=== PATIENT | male | born 2000 | race Caucasian/White ===

== ENCOUNTER 2022-04-22 14:42 | Inpatient (IN) | payer OTHER ==
[~2022-04-22] VITALS: Ht 182.9 cm; Wt 63.7 kg
[~2022-04-22 14:42] MED LIST: ACET325UDC; AMOX50SU PO; ASPI81CH; BUPRENORPHIN-N1 EAC1 SL; CODACE15 PO; CODACEE120 PO; IBUP100S; IBUP400 PO; Norco 5-325 Ta1 EACH PO; ONDA4ODT MM
[2022-04-22 15:08] LABS: BASOPHILS ABSOLUTE AUTO 0.03 K/mm3 (0.00-0.23); BASOPHILS PERCENT AUTO 0 % (0-2); EOSINOPHILS PERCENT AUTO 0 % (0-6); Hematocrit 49.7 % (37.0-53.0); Hemoglobin 18.3 g/dL (13.5-17.5); IMMATURE GRAN ABSOLUTE AUTO 0.05 K/mm3 (0.00-0.10); IMMATURE GRAN PERCENT AUTO 0 % (0-1); LYMPHOCYTES ABSOLUTE AUTO 1.46 K/mm3 (0.84-5.20); LYMPHOCYTES PERCENT AUTO 9 % (21-46); MONOCYTES ABSOLUTE AUTO 2.13 K/mm3 (0.16-1.47); MONOCYTES PERCENT AUTO 13 % (4-13); Mean Corpuscular HGB 30.1 pg (26.0-34.0); Mean Corpuscular HGB Conc 36.8 g/dL (31.5-36.5); Mean Corpuscular Volume 82 fL (80-100); Mean Platelet Volume 10.2 fL (9.1-12.4); NEUTROPHILS ABSOLUTE AUTO 12.51 K/mm3 (1.96-9.15); NEUTROPHILS PERCENT AUTO 77 % (41-73); Platelet Count 271 K/mm3 (150-400); RDW Coefficient Variation 11.9 % (11.7-14.2); RDW Standard Deviation 35.3 fL (35.1-46.3); Red Blood Cell Count 6.07 M/mm3 (4.30-5.90); White Blood Cell Count 16.18 K/mm3 (4.00-11.30)
[2022-04-22 15:28] LABS: Albumin/Globulin Ratio 1.4 (0.8-1.8); Bilirubin, Total 0.8 mg/dL (0.1-1.0); Calcium, Blood 10.4 mg/dL (8.5-10.1); Creatinine, Blood 1.27 mg/dL (0.60-1.20); Globulin, Blood 3.8 g/dL (2.2-4.0); Magnesium, Blood 2.6 mg/dL (1.6-2.4); Potassium, Blood 3.2 mmol/L (3.5-5.5)
[2022-04-22 15:38] LABS: Albumin, Blood 5.2 g/dL (3.4-5.0)
--- NOTE | 2022-04-23 04:32 | NUR ---
Summary: Patient admitted overnight for intractable n/v related to opiod withdrawl. Patient arrived with fever. Recieved order for rectal tylenol as patient was throwing up. Patient confused stating he came to the hospital to get a job. K+ replaced overnight. Fluids running. PRNs given per MAY. Diet changed to clear liquid. Educated patient that we would not give him food per his requests while he was actively vomitting. Educated him to take small sips. VSS. Call light in reach. Bed alarm on due to patient confusion.
[2022-04-23 04:36] LABS: BASOPHILS ABSOLUTE AUTO 0.01 K/mm3 (0.00-0.23); BASOPHILS PERCENT AUTO 0 % (0-2); EOSINOPHILS ABSOLUTE AUTO 0.03 K/mm3 (0.00-0.68); EOSINOPHILS PERCENT AUTO 0 % (0-6); Hematocrit 44.6 % (37.0-53.0); Hemoglobin 16.2 g/dL (13.5-17.5); IMMATURE GRAN ABSOLUTE AUTO 0.06 K/mm3 (0.00-0.10); IMMATURE GRAN PERCENT AUTO 0 % (0-1); LYMPHOCYTES ABSOLUTE AUTO 2.28 K/mm3 (0.84-5.20); LYMPHOCYTES PERCENT AUTO 13 % (21-46); MONOCYTES ABSOLUTE AUTO 2.55 K/mm3 (0.16-1.47); MONOCYTES PERCENT AUTO 15 % (4-13); Mean Corpuscular HGB 30.5 pg (26.0-34.0); Mean Corpuscular HGB Conc 36.3 g/dL (31.5-36.5); Mean Corpuscular Volume 84 fL (80-100); Mean Platelet Volume 10.5 fL (9.1-12.4); NEUTROPHILS ABSOLUTE AUTO 12.29 K/mm3 (1.96-9.15); NEUTROPHILS PERCENT AUTO 71 % (41-73); Platelet Count 219 K/mm3 (150-400); RDW Coefficient Variation 12.1 % (11.7-14.2); RDW Standard Deviation 36.6 fL (35.1-46.3); Red Blood Cell Count 5.31 M/mm3 (4.30-5.90); White Blood Cell Count 17.22 K/mm3 (4.00-11.30)
[2022-04-23 04:57] LABS: Albumin, Blood 4.3 g/dL (3.4-5.0); Albumin/Globulin Ratio 1.3 (0.8-1.8); Bilirubin, Total 1.2 mg/dL (0.1-1.0); Bun/Creatinine Ratio 29.2 (12.0-20.0); Calcium, Blood 8.7 mg/dL (8.5-10.1); Creatinine, Blood 1.13 mg/dL (0.60-1.20); Globulin, Blood 3.2 g/dL (2.2-4.0); Magnesium, Blood 2.7 mg/dL (1.6-2.4); Potassium, Blood 2.5 mmol/L (3.5-5.5); Total Protein, Blood 7.5 g/dL (6.4-8.2)
--- NOTE | 2022-04-23 09:05 | NUR ---
CRITICAL LAB REPORTED FOR A POTASSIUM OF 2.4, DR. ROMAN NOTIFIED. NEW ORDERS PER EMAR. REPORT RECIEVED FROM ADAMS POLK IN LAB.
--- NOTE | 2022-04-23 18:07 | NUR ---
SHIFT SUMMARY PT AOX1 AT THE MOMENT, UNABLE TO TRULY VERBALIZE MUCH. HE BECAME IRRITABLE A FEW TIMES THROUGHOUT THE SHIFT BUT WAS REDIRECTABLE. HE VOMITED MULTIPLE TIMES IN HIS BED WHICH REQUIRED MULTIPLE FULL BED CHANGES. MOST OF THE VOMITING SPELLS OCCURRED AFTER HE CHUGGED WATER. ATTEMPTED TO EDUCATE THE PT ON NOT DOING SO BUT INSTEAD SIPPING AND HE MAY HAVE FINALLY UNDERSTOOD AND IS NOW SIPPING AND EATING ICE CHIPS. LESS VOMITING HAS OCCURRED THE SHIFT PROGRESSED. PT RECIEVED 60 MEQ OF IV POTASSIUM THAT IS DOCUMENTED ON THE EMAR WELL MULTIPLE DOSES OF ANTI-NAUSEA MEDICATION ALSO ON THE EMAR. PT'S FATHER AND BROTHER VISITED THIS SHIFT. WILL REPORT TO ONCOMING NURSE.
[2022-04-23 23:10] LABS: Source, Urine Clean Catch
[2022-04-23 23:13] LABS: Bilirubin, Urine Neg (Neg); Blood, Urine Neg (Neg); Glucose Qualitative, Urine Neg (Neg); Ketones, Urine 2+ (Neg); Leukocyte Esterase, Urine 1+ (Neg); Nitrite, Urine Neg (Neg); Protein, Urine 3+ (Neg); Specific Gravity, Urine 1.015 (1.003-1.022); Urobilinogen, Urine NORM (Normal)
[2022-04-23 23:23] LABS: Amorphous Light (0-Heavy); Appearance, Urine Clear (Clear); Bacteria Few /hpf; Color, Urine Yellow (P-Yellow); Red Blood Cells, Urine Not Seen /hpf (0-2); Squamous Epithelial Cells Not Seen /hpf (Few)
[2022-04-24 04:52] LABS: BASOPHILS ABSOLUTE AUTO 0.03 K/mm3 (0.00-0.23); BASOPHILS PERCENT AUTO 0 % (0-2); EOSINOPHILS PERCENT AUTO 0 % (0-6); Hematocrit 51.7 % (37.0-53.0); Hemoglobin 18.7 g/dL (13.5-17.5); IMMATURE GRAN ABSOLUTE AUTO 0.06 K/mm3 (0.00-0.10); IMMATURE GRAN PERCENT AUTO 0 % (0-1); LYMPHOCYTES PERCENT AUTO 15 % (21-46); MONOCYTES PERCENT AUTO 15 % (4-13); Mean Corpuscular HGB 30.7 pg (26.0-34.0); Mean Corpuscular HGB Conc 36.2 g/dL (31.5-36.5); Mean Corpuscular Volume 85 fL (80-100); Mean Platelet Volume 10.4 fL (9.1-12.4); NEUTROPHILS ABSOLUTE AUTO 11.35 K/mm3 (1.96-9.15); NEUTROPHILS PERCENT AUTO 69 % (41-73); Platelet Count 253 K/mm3 (150-400); RDW Coefficient Variation 11.9 % (11.7-14.2); RDW Standard Deviation 36.8 fL (35.1-46.3); White Blood Cell Count 16.34 K/mm3 (4.00-11.30)
--- NOTE | 2022-04-24 05:06 | NUR ---
Summary: Patient had large amounts of emisis at start of shift. Patient assisted by nurse into shower and bedding changed. Nurse limited patient to clear liquids only as tolerated. Provided very small amount of fluids at a time to prevent patient consuming quickly then causing vomitting. Patient tolerated small sips of water, two popcycles, and tylenol crushed in applesause. UA sent to lab. Call light in reach. Patient still pretty lethargic only responds in one word short responses when he does respond.
[2022-04-24 05:20] LABS: Albumin, Blood 4.9 g/dL (3.4-5.0); Anion Gap 10 mmol/L (6-16); Blood Urea Nitrogen 46 mg/dL (8-24); Bun/Creatinine Ratio 32.2 (12.0-20.0); CO2, Blood 44 mmol/L (21-32); Calcium, Blood 10.2 mg/dL (8.5-10.1); Chloride, Blood 85 mmol/L (98-108); Creatinine, Blood 1.43 mg/dL (0.60-1.20); Glomerular Filtration Rate 71 (60-); Glucose, Blood 168 mg/dL (70-99); Phosphorus, Blood 4.4 mg/dL (2.5-4.9); Potassium, Blood 2.2 mmol/L (3.5-5.5); Sodium, Blood 139 mmol/L (136-145)
[2022-04-24 05:43] LABS: Magnesium, Blood 3.6 mg/dL (1.6-2.4)
--- NOTE | 2022-04-24 06:13 | NUR ---
Patient very lethargic this am. Critical K+ 2.2. EKG done with abnormal results read to Dr. Carrion. Recieved verbal order that he wants to transfer patient to PCU. Notified charger tester. Patient VSS currently stable, IV K+ replacement running. Patient responding to all orientation questions but returns to sleep after.
--- NOTE | 2022-04-24 06:40 | NUR ---
NOTIFIED PATIENT FATHER THAT HE MOVED TO ROOM [facility] BY VOICEMAIL AT [phone].
[2022-04-24 07:20] LABS: Source, Urine Foley catheter
[2022-04-24 07:29] LABS: Bilirubin, Urine Neg (Neg); Blood, Urine Neg (Neg); Color, Urine Yellow (P-Yellow); Glucose Qualitative, Urine Neg (Neg); Ketones, Urine 1+ (Neg); Leukocyte Esterase, Urine 1+ (Neg); Nitrite, Urine Neg (Neg); Protein, Urine 3+ (Neg); Specific Gravity, Urine 1.015 (1.003-1.022); Urobilinogen, Urine NORM (Normal)
[2022-04-24 07:34] LABS: Bicarbonate Venous 53.6 mmol/L (24.0-30.0); PCO2 Venous 49.2 mmHg (38-42); pH Blood Venous 7.64 (7.34-7.37)
[2022-04-24 07:35] LABS: Base Excess Venous 32.1 mmol/L
[2022-04-24 07:39] LABS: Appearance, Urine Hazy (Clear)
[2022-04-24 07:40] LABS: Red Blood Cells, Urine Not Seen /hpf (0-2); Squamous Epithelial Cells Rare /hpf (Few); White Blood Cells, Urine 0-2 /hpf (0-5)
[2022-04-24 07:41] LABS: Bacteria Rare /hpf
--- NOTE | 2022-04-24 07:46 | NUR ---
PT ADMITTED TO ICU AT 0646 FROM PCU FOR AMS. PT MINIMALLY RESPONSIVE, HE DID NOT AWAKEN/RESPOND WHEN HE WAS TRANSFERED TO ICU BED OR WHEN BUSCH CATH PLACED. AFTER TURN TO LOOK AT SKIN, WE HAD BEEN SPEAKING OUT LOUD ABOUT WHAT CAUSED SCAR ON HIS FEET, PT SPOKE UP,"IT'S FROM SMOKING". PT ABLE TO WEAKLY FOLLOW SOME COMMANDS THEN DRIFTED BACK INTO DEEP SLEEP. TEMP 101.6 VIA TEMP BUSCH PROBE. 14F BUSCH PLACED W/O DIFFICULTY. CRITICAL HIGH PH OF 7.[address] MORLEY. 2L VIA N/C PLACED ON PT FOR SATS 90% ON RA. PT HAS SOME HYPOVENT. PT TACHY W RATE 115, HTN AT 143/102. FINE FLAT RED RASH THAT MOVED AROUND ON CHEST NOTED, RASH BLANCHES. K+ INFUSING. LR INFUSING. PUPILS ARE 5/5MM EQUAL AND REACTIVE, BRISK. PT APPEARS DEHYDRATED, LIPS AND TONGUE ARE DRY AND CRACKED, URINE VERY CONCENTRATED/DARK.
--- NOTE | 2022-04-24 09:17 | NUR ---
DR ROMAN IN TO SEE PT. TYLENOL OK ORDERED. PT BRIEFLY INTERMIT. AWAKENS WITH DEEP PAINFUL STIMULI. PT COUGHED UP LARGE THICK BURGOS SPUTUM, SAMPLE SENT. MESSAGE LEFT TO CALL ICU TO PT'S GRANDMOTHER AND FATHER.
--- NOTE | 2022-04-24 13:03 | NUR ---
POTASSIUM INFUSING X2 FOR A TOTAL OF 20MEQ/HR PER DR MORLEY AND PHARMACY. K+ INFUSING THROUGH CENTRAL LINE. PICC LINE PLACED TO HUDSON; PT DANIEL PROCEDURE WELL. 2800CC DARK GREEN OUT PUT FROM NG TUBE. 1L NS BOLUS STARTED PER DR MORLEY. O2 INCREASED TO 3L TO KEEP SATS >90%. TEMP 102.0 FAN PLACED, BLANKET REMOVED, SHEET PLACED, COOL RAG TO FOREHEAD. MULTIPLE FAMILY MEMBERS AT BEDSIDE INCLUDING PT'S FATHER AND GRANDMOTHER. PT IS WAKING UP A LITTLE MORE OFTEN, REQUESTS SUCTION CATHETER.
[2022-04-24 14:57] LABS: U Amphetamine Screen Not Detected; U Barbituate Screen Not Detected; U Benzodiazapine Screen Not Detected; U Buprenorphine Screen DETECTED; U Cannabinoids Screen Not Detected; U Cocaine Screen Not Detected; U Methadone Screen Not Detected; U Methamphetamine Screen Not Detected; U Opiates Screen Not Detected; U Oxycodone Screen Not Detected; U Phencyclidine Screen Not Detected; U Propoxyphene Screen Not Detected
[2022-04-24 15:13] LABS: Bun/Creatinine Ratio 35.8 (12.0-20.0); Calcium, Blood 9.3 mg/dL (8.5-10.1); Creatinine, Blood 1.48 mg/dL (0.60-1.20); Potassium, Blood 2.5 mmol/L (3.5-5.5)
--- NOTE | 2022-04-24 18:44 | NUR ---
PT PULLED OUT NG TUBE, NGT TUBE REPLACED, PT DANIEL PROCEDURE WELL. 16F NGT PLACED TO RIGHT NARE; LOW INTERMIT. SX. DARK BROWN/GREEN OUTPUT CONT. 3700 TOTAL NGT OUTPUT THIS SHIFT. PT RECEIVED 80MEQ K+ THIS MORNING AND IS NOW RECIEVING ANOTHER 80MEQ K+. CHEM 8 TO BE DRAWN AFTER K+ INFUSES. NS INFUSING AT 150CC/HR. RASH HAS IMPROVED. MENTATION DID IMPROVE SLIGHTLY LATE MORNING, EARLY AFTERNOON, PT BECOMING MORE SOMNOLENT AGAIN, AWAKENS FROM SLEEP CONFUSED (PULLED OUT NG), ABLE TO RE-DIRECT PT. BP HAS REMAINED STABLE T/O SHIFT, OCC HTN. SINUS TACH T/O SHIFT, RATE IMPROVED AFTER LITER BOLUS. PT COUGHED UP THICK SPUTUM EVERY 30-60 MIN T/O SHIFT WHICH WAS SUCTIONED. PT REQUIRED DEEP SUCTION X2; SATS DROPPED TO 87% D/T THICK SECRETIONS AND NEEDED ASSIST. CLEARING THEM. O2 INCREASED TO 4L VIA N/C TO KEEP SATS >90%. PT'S FATHER AT BEDSIDE NOW. TMAX 102.5. MS TYLENOL GIVEN TWICE, FAN ON PT.
--- NOTE | 2022-04-25 02:23 | NUR ---
NOTIFIED BY LAB OF CRITICAL POTASSIUM OF 2.4. CONSULTED WITH MEGHAN IN PHARMACY FOR POSSIBILITIES OF NEXT POTASSIUM ORDERS. CALLED DR RUIZ WITH SUGGESTIONS FROM LAB. CONSENSUS TO ORDER 60 MEQ'S IN 500 ML NS. ORDER TO RUN AT 166 MLS/HR TOTALLING 60 MEQ'S IN 3 HOURS. OIL WELL FISHING TOOL OPERATOR HEIDI INFORMED WELL.
[2022-04-25 05:47] LABS: Base Excess Venous 9.8 mmol/L; PCO2 Venous 40.9 mmHg (38-42); pH Blood Venous 7.51 (7.34-7.37)
[2022-04-25 06:02] LABS: Anion Gap 6 mmol/L (6-16); Blood Urea Nitrogen 46 mg/dL (8-24); Bun/Creatinine Ratio 36.5 (12.0-20.0); CO2, Blood 31 mmol/L (21-32); Calcium, Blood 9.3 mg/dL (8.5-10.1); Chloride, Blood 110 mmol/L (98-108); Creatinine, Blood 1.26 mg/dL (0.60-1.20); Glomerular Filtration Rate 83 (60-); Glucose, Blood 128 mg/dL (70-99); Magnesium, Blood 3.4 mg/dL (1.6-2.4); Phosphorus, Blood 1.6 mg/dL (2.5-4.9); Potassium, Blood 2.8 mmol/L (3.5-5.5); Sodium, Blood 147 mmol/L (136-145)
--- NOTE | 2022-04-25 06:06 | NUR ---
END OF SHIFT SUMMARY PT COMPLACENT MOST OF THE NIGHT. DOES NOT AWAKEN FOR MORE THAN A FEW SECONDS AT A TIME WHEN SPOKEN TO. FOLLOWS COMMANDS VERY SLOWLY. RESP- 4 LPM NC WITH SPO2 >93%. LUNG SOUNDS CLEAR BILATERALLY THROUGHOUT. CARDIAC- ST WITH HR IN 110-120'S. SBP 140'S CONSISTANTLY THROUGHOUT NIGHT. GI,- 1250 OUTPUT PER OGT. DARK BROWN- COFFEE GROUND CONTENT ON INTERMITENT SUCTION. BUSCH DRAINING TO GRAVITY WITH LIGHT YELLOW URINE PRESENT. LABS DONE LATE THIS MORNING D/T K+ TREATMENT ENDING SHORTLY AFTER 5AM. WILL CONTINUE TO MONITOR UNTIL DAYSHIFT RN IS GIVEN REPORT.
[2022-04-25 06:11] LABS: BASOPHILS ABSOLUTE AUTO 0.05 K/mm3 (0.00-0.23); BASOPHILS PERCENT AUTO 0 % (0-2); EOSINOPHILS ABSOLUTE AUTO 0.01 K/mm3 (0.00-0.68); EOSINOPHILS PERCENT AUTO 0 % (0-6); Hematocrit 50.9 % (37.0-53.0); Hemoglobin 17.9 g/dL (13.5-17.5); IMMATURE GRAN ABSOLUTE AUTO 0.12 K/mm3 (0.00-0.10); IMMATURE GRAN PERCENT AUTO 1 % (0-1); LYMPHOCYTES ABSOLUTE AUTO 2.51 K/mm3 (0.84-5.20); LYMPHOCYTES PERCENT AUTO 11 % (21-46); MONOCYTES PERCENT AUTO 13 % (4-13); Mean Corpuscular HGB 30.4 pg (26.0-34.0); Mean Corpuscular HGB Conc 35.2 g/dL (31.5-36.5); Mean Corpuscular Volume 87 fL (80-100); Mean Platelet Volume 10.5 fL (9.1-12.4); NEUTROPHILS ABSOLUTE AUTO 17.64 K/mm3 (1.96-9.15); NEUTROPHILS PERCENT AUTO 75 % (41-73); Platelet Count 220 K/mm3 (150-400); RDW Standard Deviation 38.5 fL (35.1-46.3); Red Blood Cell Count 5.88 M/mm3 (4.30-5.90); White Blood Cell Count 23.43 K/mm3 (4.00-11.30)
--- NOTE | 2022-04-25 09:10 | NUR ---
ASSUMED CARE / DR MORLEY: REPORT RECEIVED FROM MARGARITO Gross RN. ASSUMED CARE OF THIS PT AT APPROX 0700. ON ASSESSMENT, THE PT IS RESTING QUIETLY. HE IS SOMNOLENT OVERALL BUT DOES BEGIN TO AWAKEN W/ CONTINUED VERBAL & TACTILE STIMULUS. HE WILL ANSWER QUESTIONS BY NODDING HEAD BUT NEEDS ASKED REPEATEDLY TO REMAIN AWAKE. PT IS TACHYPNEIC & USING ACCESSORY MUSCLES DURING RESPIRATIONS. LS CLEAR T/O, O2 SATS BEGINNING TO TREND DOWN W/ AVG 90%, DROPPING TO 84% AT TIMES. PT ENCOURAGED TO COUGH & DEEP BREATHE W/ O2 SATS IMPROVING TEMPORARILY. THIS RN HAS CONTACTED KIRILL R, RT, W/ REQUEST FOR PT TO BE PLACED ON AIRVO. PT TOLERATING WELL. MONITOR SHOWS ST W/ HR 110-130s, BP STABLE. PT NPO R/T RESPIRATORY STATUS & SOMNOLENCE. TEMP BUSCH PATENT/ DRAINING CLEAR YELLOW URINE. SKIN CONDITION OVERALL INTACT, SCATTERED AREAS OF SCARRING, PRESTON TO TOPS OF BILATERAL FEET. DR MORLEY AT BEDSIDE THIS AM W/ THIS RN's CONCERNS ABOUT PT's PERSISTANT AMS & DYSPNEA. THIS RN ALSO REQUESTS FURTHER POTASSIUM REPLETION THE PT's NEWEST LABS SHOW LOW VALUE OF 2.8. DR MORLEY HAS EVALUATED THE PT, ORDERS FOR KCL, NAPHOS & CAGLUC PLACED. NO OTHER CHANGES AT THIS TIME. WILL CONTINUE TO MONITOR & UPDATE NEEDED.
--- NOTE | 2022-04-25 17:30 | NUR ---
SHIFT SUMMARY: NO ACUTE CHANGES SINCE PRIOR UPDATES. PT's MENTATION HAS IMPROVED SLIGHTLY & HE IS NOW SPEAKING IN SHORT SENTENCES & ASKING APPROPRIATE QUESTIONS WHEN AWAKE, ALTHOUGH DOES REMAIN SOMNOLENT MOST OF THE TIME. LS CLEAR T/O, PT ON AIRVO W/ SETTINGS: 35 L/MIN & 40% FIO2. TOLERATING WELL W/ O2 SATS > 92% ON AVG. MONITOR SHOWS ST W/ HR 110-130s, TRENDING DOWN AFTER 1L LR FLUID BOLUS PER DR MORLEY. PT NPO R/T AMS & COPIOUS AMNTS GASTRIC CONTENTS SUCTIONED THROUGH NGT. NGT OUTPUT HAS GONE FROM COFFEE GROUNDS, TO MARLENA RED, TO GREEN/ BILE COLORED & AMNT HAS DECREASED THIS AFTERNOON. TEMP BUSCH PATENT/ DRAINING CLEAR YELLOW URINE. SKIN CONDITION OVERALL INTACT, UNCHANGED. Q2H REPOSITIONING TO MAINTAIN SKIN INTEGRITY. WILL CONTINUE TO MONITOR & REPORT OFF TO ONCOMING RN.
--- NOTE | 2022-04-25 20:00 | NUR ---
ASSUMED CARE OF PT AT 1915. REPORT RECEIVED AT BEDSIDE. PT PRESENTS IN BED. HAS AIRVO IN PLACE. MAINTAINS SATURATIONS > 90 PERCENT. PT WILL OPEN EYES TO TACTILE AND VERBAL STIMULI. HAS NGT TO LIWS. BILE COLORED DRAINAGE. PROTONIX DRIP AT 8MG/HOUR. WILL REVIEW CHART AND PLAN OF CARE FOR THIS PT.
--- NOTE | 2022-04-25 22:00 | NUR ---
FULL CHG BATH DONE. PT TOLERATES THIS WELL. TACHYPNEA WITH RATES 30'S TO 40'S AT TIMES. HE DID REMOVE HIS AIRVO EARLIER AND MAINTAINED 90-91 PERCENT ON ROOM AIR. HE BECOMES MORE DYSPNEIC WITH AIRVO OFF. DID PLACE AIRVO BACK TO EASE EFFORTS OF RESPIRATION. WILL CONTINUE TO MONITOR PT.
[2022-04-26 04:15] LABS: BASOPHILS ABSOLUTE AUTO 0.01 K/mm3 (0.00-0.23); BASOPHILS PERCENT AUTO 0 % (0-2); EOSINOPHILS ABSOLUTE AUTO 0.01 K/mm3 (0.00-0.68); EOSINOPHILS PERCENT AUTO 0 % (0-6); Hematocrit 41.7 % (37.0-53.0); Hemoglobin 14.6 g/dL (13.5-17.5); IMMATURE GRAN ABSOLUTE AUTO 0.03 K/mm3 (0.00-0.10); IMMATURE GRAN PERCENT AUTO 0 % (0-1); LYMPHOCYTES ABSOLUTE AUTO 2.13 K/mm3 (0.84-5.20); LYMPHOCYTES PERCENT AUTO 16 % (21-46); MONOCYTES ABSOLUTE AUTO 1.52 K/mm3 (0.16-1.47); MONOCYTES PERCENT AUTO 12 % (4-13); Mean Corpuscular HGB 30.5 pg (26.0-34.0); Mean Corpuscular Volume 87 fL (80-100); Mean Platelet Volume 10.5 fL (9.1-12.4); NEUTROPHILS ABSOLUTE AUTO 9.45 K/mm3 (1.96-9.15); NEUTROPHILS PERCENT AUTO 72 % (41-73); Platelet Count 128 K/mm3 (150-400); RDW Coefficient Variation 12.2 % (11.7-14.2); RDW Standard Deviation 39.3 fL (35.1-46.3); Red Blood Cell Count 4.78 M/mm3 (4.30-5.90); White Blood Cell Count 13.15 K/mm3 (4.00-11.30)
[2022-04-26 04:34] LABS: Albumin, Blood 2.8 g/dL (3.4-5.0); Albumin/Globulin Ratio 0.9 (0.8-1.8); Bilirubin, Total 1.2 mg/dL (0.1-1.0); Bun/Creatinine Ratio 34.8 (12.0-20.0); Calcium, Blood 8.2 mg/dL (8.5-10.1); Creatinine, Blood 1.12 mg/dL (0.60-1.20); Globulin, Blood 3.2 g/dL (2.2-4.0); Magnesium, Blood 2.6 mg/dL (1.6-2.4); Phosphorus, Blood 1.4 mg/dL (2.5-4.9); Potassium, Blood 3.3 mmol/L (3.5-5.5)
--- NOTE | 2022-04-26 05:59 | NUR ---
PT HAS HAD > 800 ML OUPUT FROM OGT. HAS RUN LOW GRADE FEVER THROUGHOUT THE SHIFT. HAS REMAINED < 101.3. HAVE PROVIDED FAN. PT ONLY SPOKEN WORDS TO THIS RN WAS THAT HE WAS "COLD". DID EXPLAIN TO PT THAT HE WAS WITH FEVER, AND THAT TOO MANY EXTRA BLANKETS COULD MAKE FEVER HIGHER. PT HAS AT TIMES REMOVED HIS AIRVO. WITH DOING THIS, HIS SATURATIONS DID REMAIN 88-91 PERCENT. HIS RESPIRATORY EFFORT DID INCREASE. HAVE PROVIDED YAUNKEUR FOR PT TO SELF SUCTION WHEN HE IS ABLE TO EXPECTORATE SPUTUM. CREAM COLORED SECRETIONS NOTED. WILL CONTINUE TO MONITOR PT, AND WILL REPORT OFF TO ONCOMING RN.
--- NOTE | 2022-04-26 10:55 | NUR ---
ASSUMED CARE OF [place] AT 0700, HE HAS BEEN AWAKE AND ASKING FOR SOMETHING TO DRINK SINCE THAT TIME, WHEN CAME IN TO SEE HIM HE SAID HE COULD HAVE CLEAR LIQUIDS. AT THAT TIME HE WAS ABLE TO TAKE IN ICE WATER WITHOUT INCIDENT. HE WAS GIVEN A CLEAR LIQUID BREAKFAST TRAY INWHICH HE TOOK IN ALL BUT THE JELLO. HE HAS SINCE HAD A CRANBERRY JUICE/SUSAN MIST DRINK, TWO MORE GLASSES OF ICE WATER AND NOW IS TAKING IN A CUP OF HOT COCOA PER HIS REQUEST. HE IS ORIENTED TO ALL BUT DAY. HE KNOWS WHAT IS HAPPENING AND WHY HE IS HERE. HE IS CURRENTLY RECEIVING SODIUM PHOSPHATE, POTASSIUM RIDERS AND PROTONIX. HIS SKIN IS HOT TO THE TOUCH AND HAS INTERMITTENT RED BLOTCHES OVER HIS CHEST AND ABD. HE WAS GIVEN TYLENOL FOR TEMP 101.3 AND IT HAS INCREASED TO 101.4. HE IS ABLE TO COUGH INDEPENDENTLY AND EXPECTORATE CERVANTES/CURIEL RETURN VIA THE YANKAUER. HE IS COOPERATIVE TO CARE, TEACHING ABOUT WITHDRAWAL SYMPTOMS AND EXPECTATIONS.
--- NOTE | 2022-04-26 13:13 | NUR ---
LANNY HAS BEEN COMPLAINING THAT HE IS COLD, DENIES ANY N/V. HE WAS INCONTINENT OF LIQUID STOOL. DID CLEAN HIM UP WITH ONLY MINIMAL ASSISTANCE FROM HIM. HE C/O FEELING WEAK AND LOWSY. SAYS THAT THIS "SUCKS" REGARDING WHAT HE IS EXPERIENCING. REMINDED IT TAKES TIME TO RECOVER FROM HEAVY ADDICTION. HIS TEMP AND BP REMAIN ELEVATED. HEART RATE IS COMING DOWN SOME. CONTINUES TO TOLERATE LIQUIDS.
--- NOTE | 2022-04-26 14:29 | NUR ---
UPDATE TO , REGARDING PT'S GOOD INTAKE AND 2 LIQUID BM'S. SHE PREFERS TO KEEP THE NG IN FOR NOW. FAMILY AWARE OF PLAN. DAD AND HIS S/O ARE HERE, PT RESPONDS WELL TO DAD. STILL VERY WITHDRAWN AND DIFFICULT TO ENGAGE. CONT. C/O BEING COLD, TEMP IS 100.7.
[2022-04-26 16:30] LABS: Vancomycin, Trough 11.5 ug/mL (5.0-10.0)
[2022-04-26 16:32] LABS: Bun/Creatinine Ratio 30.3 (12.0-20.0); Calcium, Blood 8.2 mg/dL (8.5-10.1); Creatinine, Blood 1.09 mg/dL (0.60-1.20); Phosphorus, Blood 2.8 mg/dL (2.5-4.9); Potassium, Blood 2.7 mmol/L (3.5-5.5)
--- NOTE | 2022-04-26 16:49 | NUR ---
AFTER SPEAKING WITH THE PATIENT ABOUT 'S PLAN TO KEEP THE NG TUBE IN FOR A BIT LONGER, LANNY PULLED IT OUT. WITHIN 5 MINUTES HE SAID HE WAS FEELING NAUSEATED AND HE THREW UP 4 TIMES ABOUT 150 ML EACH TIME. THE NGT WAS REPLACED WITH AN IMMEDIATE RETURN OF 1200ML BILE COLOR IN SUCTION CANNISTER, THEN AN ADDITIONAL 600ML INTO A SECOND CANNISTER. HE THEN WENT FAST ASLEEP. HIS IV WAS REMOVED IN THE LEFT AC IT WAS LEAKING, REPLACED IN THE LEFT FOREARM. DRESSING FOR THE RIGHT PICC LINE CHANGED PER PROTOCOL. BP REMAINS 130'S/80'S AND HEART RATE IS NOW DOWN TO 90'S. SATS REMAIN >95% ON ROOM AIR. LINENS WERE CHANGED AGAIN AFTER THE EMESIS. PROTONIX GTT CONTINUES, NS TKO FOR ANTIBIOTICS.
--- NOTE | 2022-04-26 20:09 | NUR ---
ASSUMED CARE OF PT AT 1915. REPORT RECEIVED AT BEDSIDE. PT PRESENTS IN BED. ALERT AND AGITATED. PT FREQUENTLY ASKING FOR SOMETHING TO DRINK, AND TO EAT. EXPLAINED IN DETAIL WHY THIS IS CONTRAINDICATED AND ORDERED BY THE PHYSICIAN THAT HE IS NPO. PT PUTS HIS CALL LIGHT ON THIS RN IS EXPLAINING TO HIM THE ORDERS. PT REPEATEDLY PUTS HIS CALL LIGHT ON AGAIN WHILE THIS RN IN ROOM. PT THREATENS THAT HE WILL PULL EVERYTHING OUT AND GO TO THE SINK TO DRINK WATER. EXPLAINED TO PT WHY THIS IS UNSAFE. HAVE CALLED DR MORLEY WITH UPDATE ON PT'S POTASSIUM LEVEL. ORDER RECEIVED FOR POTASSIUM REPLACEMENT. WILL REVIEW CHART AND PLAN OF CARE FOR THIS PT.
--- NOTE | 2022-04-27 00:01 | NUR ---
CLAMPED NGT FOR ONE AND A HALF HOUR AFTER GIVING PROBIOTIC. DID AT THAT TIME HAVE PT SWALLOW PILL WITH SOME WATER. WHEN OPENING CLAMP, PT ONLY PUTS OUT APPROX 50 ML BILE TINGED LIQUID PER NGT. HAVE PROVIDED APPROX 150 ML SUSAN MYST, AND A HALF CUP OF ICE. CLAMPED NGT AGAIN. AND WILL WAIT APPROX 1 TO 2 HOURS AND CHECK GASTRIC VOLUME. EXPLAINED THIS TO PT.
--- NOTE | 2022-04-27 01:25 | NUR ---
PT FREQUENTLY USING CALL LIGHT FOR SMALL TASKS. DID INQUIRE IF PT WAS BORED RESULTING IN HIM CALLING FOR ASSIST SO FREQUENTLY. PT ADMITS THAT THIS WAS THE CASE. PT REQUESTS HOSPITAL SOCKS. THIS PROVIDED.
[2022-04-27 06:06] LABS: BASOPHILS PERCENT AUTO 0 % (0-2); EOSINOPHILS ABSOLUTE AUTO 0.09 K/mm3 (0.00-0.68); EOSINOPHILS PERCENT AUTO 1 % (0-6); Hematocrit 35.1 % (37.0-53.0); Hemoglobin 12.7 g/dL (13.5-17.5); IMMATURE GRAN ABSOLUTE AUTO 0.02 K/mm3 (0.00-0.10); IMMATURE GRAN PERCENT AUTO 0 % (0-1); LYMPHOCYTES ABSOLUTE AUTO 2.12 K/mm3 (0.84-5.20); LYMPHOCYTES PERCENT AUTO 22 % (21-46); MONOCYTES ABSOLUTE AUTO 1.13 K/mm3 (0.16-1.47); MONOCYTES PERCENT AUTO 12 % (4-13); Mean Corpuscular HGB Conc 36.2 g/dL (31.5-36.5); Mean Corpuscular Volume 86 fL (80-100); Mean Platelet Volume 10.5 fL (9.1-12.4); NEUTROPHILS ABSOLUTE AUTO 6.38 K/mm3 (1.96-9.15); NEUTROPHILS PERCENT AUTO 66 % (41-73); Platelet Count 115 K/mm3 (150-400); RDW Coefficient Variation 12.1 % (11.7-14.2); RDW Standard Deviation 38.1 fL (35.1-46.3); White Blood Cell Count 9.74 K/mm3 (4.00-11.30)
[2022-04-27 06:28] LABS: Albumin, Blood 2.7 g/dL (3.4-5.0); Anion Gap 3 mmol/L (6-16); Blood Urea Nitrogen 26 mg/dL (8-24); Bun/Creatinine Ratio 24.5 (12.0-20.0); CO2, Blood 22 mmol/L (21-32); Calcium, Blood 8.3 mg/dL (8.5-10.1); Chloride, Blood 123 mmol/L (98-108); Creatinine, Blood 1.06 mg/dL (0.60-1.20); Glomerular Filtration Rate 102 (60-); Glucose, Blood 102 mg/dL (70-99); Magnesium, Blood 2.4 mg/dL (1.6-2.4); Phosphorus, Blood 1.4 mg/dL (2.5-4.9); Potassium, Blood 3.4 mmol/L (3.5-5.5); Sodium, Blood 148 mmol/L (136-145)
--- NOTE | 2022-04-27 06:47 | NUR ---
HAVE GOTTEN PT UP TO BEDSIDE COMMODE WHEREAS HE HAS LIQUID BROWN STOOL. PT ABLE TO STAND AND AMBULATE IN ROOM WITHOUT VERTIGO. MILDLY UNSTEADY ON FEET. PT SAT UP IN RECLINER CHAIR FOR APPROX ONE HOUR THIS MORNING. CURRENTLY BACK TO BED. HAVE CLAMPED NGT AGAIN. HAVE PROVIDED 88 ML POPCICLE FOR PT. WILL INFORM ONCOMING RN OF THIS. WILL HAVE NGT BACK TO SUCTION IN APPROX AN HOUR AND ASSESS NGT OUTPUT. WILL CONTINUE TO MONITOR PT, AND WILL REPORT OFF TO ONCOMING RN.
--- NOTE | 2022-04-27 11:51 | NUR ---
Reassessment Pt got up to the chair briefly this morning, but then wanted back in bed after less than an hour. Discussed the importance of activity for stimulating gut movement and pt verbalizes understanding, but is very upset that he can't have as much liquid as he wants so he just wants to lay down and rest. Pt educated on the need to go very slow with liquids, given the nausea he experienced yesterday, but pt is very irritated at that. Pt talked about wanting to jsut go home and pt edcuated on the severity of his electolyte imblalances and that potential risks. Otherwise pt has been alert, oriented, clear lungs, SR/ST in the upper 90-low 100s. NG has been clamped since about 0500 this mornign and pt denies any nausea. One small BM this am. Plan for shower later once electrolytes are done infusing. Multiple family members have been by to visit with pt.
--- NOTE | 2022-04-27 15:56 | NUR ---
TRANSFER PT HAS CONTINUED TO DENY ANY NAUSEA WITH THE NG CLAMPED. PT WAS ABLE TO WALK TO THE SHOWER AND BATHE HIMSELF, THEN WC TO GET BACK TO THE ROOM BECAUSE HE WAS WORN OUT AND SHAKY. TALKED TO Bhanu ROMAN AND SHE OK'D FOR PT TO TRANSFER TO MEDICAL FLOOR WITH TELE. REPORT GIVEN TO MED FLOOR RN. PT TRANSFERRED VIA WC. ALL BELONGINGS SENT WITH PT.
[2022-04-27 16:31] LABS: Phosphorus, Blood 2.5 mg/dL (2.5-4.9); Potassium, Blood 2.9 mmol/L (3.5-5.5)
--- NOTE | 2022-04-27 18:02 | NUR ---
Received report from OPHTHALMIC PHOTOGRAPHER. Pt walked from wheel chair to bed with unsteady gait. Pt temp 99.9 will continue to monitor pt has been running a temp. Pt ng tube still clamped. Pt has no complaints of n/v. Pt diet increased to clear liquid. Pt tolerated 100% of his dinner. Pt complaining of being cold temp 100.1 medicated per emar, will continue to monitor.
[2022-04-28 04:35] LABS: BASOPHILS ABSOLUTE AUTO 0.01 K/mm3 (0.00-0.23); BASOPHILS PERCENT AUTO 0 % (0-2); EOSINOPHILS PERCENT AUTO 3 % (0-6); Hematocrit 33.4 % (37.0-53.0); Hemoglobin 12.1 g/dL (13.5-17.5); IMMATURE GRAN ABSOLUTE AUTO 0.03 K/mm3 (0.00-0.10); IMMATURE GRAN PERCENT AUTO 0 % (0-1); LYMPHOCYTES ABSOLUTE AUTO 1.95 K/mm3 (0.84-5.20); LYMPHOCYTES PERCENT AUTO 24 % (21-46); MONOCYTES ABSOLUTE AUTO 1.27 K/mm3 (0.16-1.47); MONOCYTES PERCENT AUTO 16 % (4-13); Mean Corpuscular HGB 30.5 pg (26.0-34.0); Mean Corpuscular HGB Conc 36.2 g/dL (31.5-36.5); Mean Corpuscular Volume 84 fL (80-100); NEUTROPHILS ABSOLUTE AUTO 4.55 K/mm3 (1.96-9.15); NEUTROPHILS PERCENT AUTO 57 % (41-73); Platelet Count 114 K/mm3 (150-400); RDW Coefficient Variation 11.9 % (11.7-14.2); RDW Standard Deviation 36.2 fL (35.1-46.3); Red Blood Cell Count 3.97 M/mm3 (4.30-5.90); White Blood Cell Count 8.01 K/mm3 (4.00-11.30)
[2022-04-28 05:03] LABS: Albumin, Blood 2.5 g/dL (3.4-5.0); Anion Gap 4 mmol/L (6-16); Blood Urea Nitrogen 18 mg/dL (8-24); Bun/Creatinine Ratio 13.6 (12.0-20.0); CO2, Blood 23 mmol/L (21-32); Chloride, Blood 117 mmol/L (98-108); Creatinine, Blood 1.32 mg/dL (0.60-1.20); Glomerular Filtration Rate 79 (60-); Glucose, Blood 132 mg/dL (70-99); Magnesium, Blood 2.3 mg/dL (1.6-2.4); Phosphorus, Blood 2.3 mg/dL (2.5-4.9); Potassium, Blood 2.8 mmol/L (3.5-5.5); Sodium, Blood 144 mmol/L (136-145)
[2022-04-28 05:20] LABS: Vancomycin, Trough 17.9 ug/mL (5.0-10.0)
--- NOTE | 2022-04-28 05:56 | NUR ---
Shift Summary No c/o of nausea t/o shift. Pt stated his last bout of nausea was 04/26 at 1600. NG tube was bothering pt and it became disloged, I removed the NG tube and then called the hospitalist for an order to D/C. Pt tolerating clear liquid diet. Pt has 3-4 loose watery BMs this shift with some yellow coloration. AOx4, having difficulty sleeping. Pt c/o restless leg sydrome, called hospitalist who ordered 0.125 mg Mirapex PRN at bedtime. Pt states this medicaiton helped greatly. VSS, pleasant and cooperative.
[2022-04-28] MEDS ORDERED: PRAM.125 PO (11:35)
[2022-04-28] MEDS ORDERED: AMOCLA875 PO (11:36)
[2022-04-28] MEDS ORDERED: POTA10T PO (11:36)
[2022-04-28] MEDS ORDERED: VISBIOME 112.51 EACH PO (11:36)
--- NOTE | 2022-04-28 18:04 | NUR ---
Discharged pt with his father.
== END 2022-04-28 17:30 | disposition home or self-care (01) | DRG 896 ==
LOC: ER 14:42 → MEDS 14:43 → ICUE 04-23 14:26 → MEDS 04-23 14:26 → PCU 04-24 06:22 → ICUE 04-24 06:53 → MEDS 04-27 15:51
PROVIDERS: Family Medicine; Internal Medicine Critical Care Medicine; Physician Assistant; ADMIT Student in an Organized Health Care Education/Training Program
PROC: 0DH67UZ Insertion of Feeding Device into Stomach, Via Natural or Artificial Opening (ICD-10-PCS; principal; 2022-04-24)
PROC: 02HV33Z Insertion of Infusion Device into Superior Vena Cava, Percutaneous Approach (ICD-10-PCS; 2022-04-24)
PROC: 4A133R1 Monitoring of Arterial Saturation, Peripheral, Percutaneous Approach (ICD-10-PCS; 2022-04-24)
DX: F11.23 Opioid dependence with withdrawal (principal); G92.8 Other toxic encephalopathy; J69.0 Pneumonitis due to inhalation of food and vomit; E87.3 Alkalosis; N17.9 Acute kidney failure, unspecified; E87.0 Hyperosmolality and hypernatremia; E86.0 Dehydration; E87.6 Hypokalemia; T43.655A Adverse effect of methamphetamines, initial encounter; T40.2X5A Adverse effect of other opioids, initial encounter; E83.39 Other disorders of phosphorus metabolism; D69.6 Thrombocytopenia, unspecified; D64.9 Anemia, unspecified; E88.09 Other disorders of plasma-protein metabolism, not elsewhere classified; Z79.899 Other long term (current) drug therapy; Z79.2 Long term (current) use of antibiotics
CPT/HCPCS: 36415; 36569; 51702; 71045; 71046; 80048; 80053; 80069; 80202; 81001; 82330; 82803; 83605; 83735; 84100; 84132; 84145; 85025; 87040; 87070; 87086; 87205; 93005; 93010; 94762; 96361; 96372; 96374; 96375; 96376; 99285-25; A9270; C1751; C1769; C9113; G0378; J0610; J0780; J1120; J1650; J2405; J2543; J2550; J3370; J3480; J7030; J7040; J7050; J7060; J7120

== ENCOUNTER 2024-09-15 11:50 | Day surgery (SDC) | payer OTHER ==
[~2024-09-15] VITALS: Ht 182.9 cm; Wt 78.0 kg
[~2024-09-15 11:50] MED LIST changes: +AMOCLA875 PO; +POTA10T PO; +PRAM.125 PO; +VISBIOME 112.51 EACH PO
[2024-09-15] MEDS ORDERED: CeFAZolin Sodium 2,000 MG VIAL ONE (12:16)
[2024-09-15] MEDS ORDERED: Methocarbamol750 MG PO (12:24)
[2024-09-15] MEDS ORDERED: GABA100 PO (12:24)
[2024-09-15] MEDS ORDERED: Ondansetron HCl 2 MG / ML 2ML Vial ONE (12:41)
[2024-09-15] MEDS ORDERED: Dexamethasone Sod Phos 10 MG/ML 1ML VIAL ONE (12:41)
[2024-09-15] MEDS ORDERED: Ketorolac Tromethamine 30mg Vial ONE (12:41)
[2024-09-15] MEDS ORDERED: FentaNYL Citrate 50 MCG/ML 2 ML Injection ONE ×2 (12:42→14:04)
[2024-09-15] MEDS ORDERED: Midazolam HCl 1MG / ML 2ML Vial ONE (12:42)
[2024-09-15] MEDS ORDERED: Lidocaine HCl 2% 10 ML SDA ONE (12:48)
--- NOTE | 2024-09-15 13:49 | NUR ---
09/15/24 1349 Malachi Currie PT'S O2 SATURATIONS 96% ON RA. CAP REFILL LESS THAN 3 SECONDS IN ALL 4 EXTREMITIES. VSS.
[2024-09-15] MEDS ORDERED: HYDROmorphone HCl/Pf 1MG SYR ONE (14:44)
[2024-09-15] MEDS ORDERED: OxyCODONE 5 mg/Acetamin 325 mg TABLET ONE (15:00)
[2024-09-15 15:15] VITALS: BP 108/79
--- NOTE | 2024-09-15 15:39 | NUR ---
09/15/24 1539 MontroseMalachi PT REPORTS A MANAGEABLE LEVEL OF PAIN AND IS AGREEABLE TO D/C HOME.
== END 2024-09-15 15:38 | disposition home or self-care (01) ==
LOC: ORSCSDS 11:50
PROVIDERS: Orthopaedic Surgery
PROC: 0PSP04Z Reposition Right Metacarpal with Internal Fixation Device, Open Approach (ICD-10-PCS; principal; 2024-09-15 13:30)
DX: S62.326A Displaced fracture of shaft of fifth metacarpal bone, right hand, initial encounter for closed fracture (principal); F17.290 Nicotine dependence, other tobacco product, uncomplicated; W51.XXXA Accidental striking against or bumped into by another person, initial encounter
CPT/HCPCS: A9270; C1713; C1889; J0690; J1100; J1171; J1885; J2003; J2250; J2405; J2704; J3010; J7120